=== PATIENT | male | born 1955 | race Caucasian/White ===

== ENCOUNTER 2024-12-15 07:25 | Day surgery (SDC) | payer BC, OTHER ==
[2024-12-15] MEDS ORDERED: Propofol 200 MG/20 ML SDV IV ONE (07:26)
[2024-12-15] MEDS ORDERED: Lactated Ringers 1,000 ML IV ONE (07:26)
[2024-12-15] MEDS: Lactated Ringers 1,000 ML IV SCH (08:04)
[2024-12-15] MEDS ORDERED: Propofol 200 MG/20 ML SDV ONE (10:12)
== END 2024-12-15 10:51 | disposition home or self-care (01) ==
LOC: DL.ENDO 07:25
PROVIDERS: ATTEND Internal Medicine Gastroenterology
DX: D12.5 Benign neoplasm of sigmoid colon (principal); R19.5 Other fecal abnormalities; E66.09 Other obesity due to excess calories; F10.90 Alcohol use, unspecified, uncomplicated; Z80.0 Family history of malignant neoplasm of digestive organs; Z68.30 Body mass index [BMI] 30.0-30.9, adult
CPT/HCPCS: 00811; 88305; J2704; J7120